=== PATIENT | male | born 1990 | race Caucasian/White ===

== ENCOUNTER 2017-02-16 21:29 | Emergency (ER) | payer MEDICAID ==
[~2017-02-16] VITALS: Ht 177.8 cm; Wt 70.3 kg
[2017-02-16 22:14] VITALS: BP 121/79
== END 2017-02-16 23:16 | disposition home or self-care (01) ==
LOC: ER 21:33
DX: J02.0 Streptococcal pharyngitis (principal)
CPT/HCPCS: 87070; 87880; 99284; A4606; Z7610; 86403-TC

== ENCOUNTER 2019-01-01 09:33 | Emergency (ER) | payer SELFPAY ==
[~2019-01-01] VITALS: Ht 177.8 cm; Wt 72.6 kg
[2019-01-01 09:39] VITALS: BP 133/89
--- NOTE | 2019-01-01 09:40 | NUR ---
C/O BUMP ON LEFT SIDE OF THE NECK. PATIENT A/OX4, BREATHING EVEN AND UNLABORED, NO SOB NOTED. PATIENT DENIES PAIN OR DISCOMFORT. NO FEVER REPORTED. NEEDS ATTENDED. KEPT COMFORTABLE.
[2019-01-01 10:10] LABS: BASOPHILS # (AUTO) 0.1 /CMM (0.0-0.2); BASOPHILS % (AUTO) 0.8 % (0.0-2.0); EOSINOPHILS % (AUTO) 2.9 % (0.0-6.0); HEMATOCRIT 48 % (39-51); HEMOGLOBIN 16.5 g/dL (13.5-17.5); LYMPHOCYTES # (AUTO) 2.6 /CMM (0.8-4.8); LYMPHOCYTES % (AUTO) 36.1 % (20.0-44.0); MEAN CORPUSCULAR HGB CONC 35 g/dl (31.0-36.0); MEAN CORPUSCULAR VOLUME 93 fL (80-96); MONOCYTES # (AUTO) 0.6 /CMM (0.1-1.30); MONOCYTES % (AUTO) 9.2 % (2.0-12.0); NEUTROPHILS # (AUTO) 3.6 /CMM (1.8-8.9); PLATELET COUNT (AUTO) 271 /CMM (150-450); RED BLOOD CELL COUNT(AUTO) 5.16 MIL/uL (4.5-6.0); WHITE BLOOD COUNT (AUTO) 7.1 K/uL (4.3-11.0)
[2019-01-01 10:17] LABS: CREATININE 0.8 mg/dL (0.6-1.3); POTASSIUM 3.7 mmol/L (3.5-5.1)
[2019-01-01] MEDS ORDERED: IOHEXOL-300 100 ML VIAL IV ONE (10:47)
[2019-01-01] MEDS ORDERED: IV NS 0.9% 250 ML IV ONE (10:47)
[2019-01-01] MEDS ORDERED: CT SWABBABLE VALVE TRANS SET 1 EA INFUS.SET MC ONE (10:47)
== END 2019-01-01 13:04 | disposition home or self-care (01) ==
LOC: ER 09:33
DX: L04.0 Acute lymphadenitis of face, head and neck (principal); Z98.890 Other specified postprocedural states
CPT/HCPCS: 36415; 70491; 80048; 85025; 99284; J7050; Q9967

== ENCOUNTER 2019-05-23 09:47 | Emergency (ER) | payer SELFPAY ==
[~2019-05-23] VITALS: Ht 177.8 cm; Wt 76.2 kg
[2019-05-23 10:40] VITALS: BP 130/77
--- NOTE | 2019-05-23 12:13 | NUR ---
Patient discharged to home in stable condition. Written and verbal after care instructions given. Patient verbalizes understanding of instruction.
== END 2019-05-23 12:15 | disposition home or self-care (01) ==
LOC: ER 09:47
DX: M75.42 Impingement syndrome of left shoulder (principal); Z98.890 Other specified postprocedural states; Z90.89 Acquired absence of other organs; W18.39XA Other fall on same level, initial encounter; Y93.89 Activity, other specified; Y92.89 Other specified places as the place of occurrence of the external cause; Y99.8 Other external cause status
CPT/HCPCS: 73030-TC

== ENCOUNTER 2021-07-19 09:15 | Emergency (ER) | payer SELFPAY ==
[~2021-07-19] VITALS: Ht 177.8 cm; Wt 81.6 kg
[2021-07-19 09:15] VITALS: BP 135/88
[2021-07-19] MEDS ORDERED: MUPI22OI2 TP ×2 (09:47→09:56)
[2021-07-19] MEDS ORDERED: SULF1TAB48 PO ×2 (09:47→09:56)
[2021-07-19] MEDS ORDERED: CEPH500C2 PO ×2 (09:47→09:56)
== END 2021-07-19 10:03 | disposition home or self-care (01) ==
LOC: ER 09:21
DX: S50.812A Abrasion of left forearm, initial encounter (principal); Z90.89 Acquired absence of other organs; X58.XXXA Exposure to other specified factors, initial encounter; Y93.89 Activity, other specified; Y92.89 Other specified places as the place of occurrence of the external cause; Y99.8 Other external cause status

== ENCOUNTER 2022-02-19 19:29 | Emergency (ER) | payer SELFPAY ==
[~2022-02-19] VITALS: Ht 177.8 cm; Wt 77.1 kg
[~2022-02-19 19:29] MED LIST: CEPH500C2 PO; MUPI22OI2 TP; SULF1TAB48 PO
[2022-02-19 19:49] VITALS: BP 142/73
[2022-02-19] MEDS ORDERED: AMOX-430 PO (21:24)
--- NOTE | 2022-02-19 21:27 | NUR ---
Patient discharged to home in stable condition. Written and verbal after care instructions given. Patient verbalizes understanding of instruction.
== END 2022-02-19 21:28 | disposition home or self-care (01) ==
LOC: ER 19:32
DX: J32.0 Chronic maxillary sinusitis (principal); Z90.89 Acquired absence of other organs; Z98.890 Other specified postprocedural states

== ENCOUNTER 2022-11-22 18:09 | Emergency (ER) | payer SELFPAY ==
[~2022-11-22] VITALS: Ht 177.8 cm; Wt 76.2 kg
[~2022-11-22 18:09] MED LIST changes: +AMOX-430 PO
[2022-11-22 18:59] LABS: BASOPHILS % (AUTO) 0.6 % (0.0-2.0); EOSINOPHILS # (AUTO) 0.1 K/uL (0.0-0.7); EOSINOPHILS % (AUTO) 1.5 % (0.0-6.0); HEMATOCRIT 46 % (39-51); HEMOGLOBIN 15.7 g/dL (13.5-17.5); LYMPHOCYTES # (AUTO) 2.3 K/uL (0.8-4.8); LYMPHOCYTES % (AUTO) 35.8 % (20.0-44.0); MEAN CORPUSCULAR HEMOGLOBIN 31 PG (26.0-33.0); MEAN CORPUSCULAR HGB CONC 34 g/dl (31.0-36.0); MEAN CORPUSCULAR VOLUME 92 fL (80-96); MONOCYTES # (AUTO) 0.6 K/uL (0.1-1.30); NEUTROPHILS # (AUTO) 3.4 K/uL (1.8-8.9); NEUTROPHILS % (AUTO) 53.1 % (43.0-81.0); PLATELET COUNT (AUTO) 254 K/uL (150-450); RED BLOOD CELL COUNT(AUTO) 4.99 MIL/uL (4.5-6.0); RED CELL DISTRIBUTION WIDTH 13.1 % (11.5-15.0); WHITE BLOOD COUNT (AUTO) 6.5 K/uL (4.3-11.0)
[2022-11-22 19:09] LABS: CARBON DIOXIDE 28 mmol/L (21-32); CHLORIDE 104 mmol/L (98-107); POTASSIUM 3.8 mmol/L (3.5-5.1); SODIUM SERUM 139 mmol/L (136-145)
[2022-11-22 19:32] LABS: CALCIUM, SERUM 9.1 mg/dL (8.5-10.1); GLUCOSE 101 mg/dL (74-106); UREA NITROGEN, BLOOD 13 mg/dL (7-18)
[2022-11-22] MEDS ORDERED: IBUP-1955 PO (20:03)
[2022-11-22 21:21] VITALS: BP 138/74; TEMP 98; O2SAT 100
== END 2022-11-22 21:22 | disposition home or self-care (01) ==
LOC: ER 18:19
DX: R07.89 Other chest pain (principal); Z79.899 Other long term (current) drug therapy; Z98.890 Other specified postprocedural states
CPT/HCPCS: 36415; 71045-TC; 80048-TC; 84484-TC; 85025-TC

== ENCOUNTER 2024-08-19 20:32 | Emergency (ER) | payer MEDICAID ==
[~2024-08-19] VITALS: Ht 177.8 cm; Wt 76.2 kg
[~2024-08-19 20:32] MED LIST changes: +IBUP-1955 PO
[2024-08-19] MEDS ORDERED: AMOX-430 PO (21:55)
[2024-08-19] MEDS ORDERED: BENZ-13 PO (21:55)
[2024-08-19] MEDS ORDERED: PSEU-182 PO (21:55)
[2024-08-19 22:06] VITALS: BP 126/78; TEMP 97.6; O2SAT 100
== END 2024-08-19 22:06 | disposition home or self-care (01) ==
LOC: ER 20:40
DX: J32.9 Chronic sinusitis, unspecified (principal); Z90.49 Acquired absence of other specified parts of digestive tract; Z79.899 Other long term (current) drug therapy